=== PATIENT | female | born 1980 | race Caucasian/White ===

== ENCOUNTER → 2018-08-01 | Outpatient (CLI) | payer OTHER ==
[~2018-08-01] MED LIST: PRENATAL VITAMI1 TA5 PO
== END ==
LOC: MC.RAD 13:43
DX: N63.20 Unspecified lump in the left breast, unspecified quadrant (principal)
CPT/HCPCS: G0279

== ENCOUNTER 2018-08-05 09:28 | Emergency (ER) | payer OTHER ==
[~2018-08-05] VITALS: Ht 162.6 cm; Wt 60.1 kg
[2018-08-05 09:30] VITALS: TEMP 98.9
[2018-08-05] MEDS ORDERED: PROBIOTIC FORMU1 CAP PO (09:47)
[2018-08-05 10:04] LABS: BASO % 0.4 % (0.0-2.0); EOS % 0.1 % (0-4.0); GRAN # 5.5 (1.4-6.5); HEMATOCRIT 38.8 % (37.0-47.0); HEMOGLOBIN 13.5 g/dl (12.5-16.0); LYMPH # 1.2 (1.2-3.4); LYMPH % 16.1 % (20.0-51.0); MEAN CELL VOLUME 86 fl (80.0-100.0); MEAN CORPUSCULAR HEMOGLOBIN 30 pg (27.0-31.0); MEAN CORPUSCULAR HGB CONC 35 g/dl (33.0-37.0); MEAN PLATELET VOLUME 9.4 fl (7.4-10.4); MONO # 0.4 (0.1-0.6); MONO % 5.8 % (1.7-9.3); PLATELET COUNT 263 K/mm3 (130-400); RED BLOOD COUNT 4.52 M/mm3 (4.10-5.30); REDCELL DISTRIBUTION WIDTH-CV 11.8 % (11.5-14.5)
[2018-08-05 10:15] LABS: ALBUMIN 4.5 gm/dL (3.5-5.0); BILIRUBIN,TOTAL 0.6 mg/dL (0.0-1.0); C-REACTIVE PROTEIN 0.6 mg/dL (0.0-0.9); CALCIUM 9.7 mg/dL (8.4-10.2); CREATININE, serum 0.58 (0.52-1.25); POTASSIUM 3.9 mmol/L (3.4-5.0); TOTAL PROTEIN 7.8 gm/dL (6.4-8.2)
[2018-08-05 11:12] LABS: COLLECTION METHOD CLEAN CATCH
[2018-08-05 11:21] LABS: MUCOUS Present /lpf; PH 5 (5-8); SQUAMOUS EPITHELIAL 0-2 /hpf; URINE APPEARANCE Clear; URINE BACTERIA None Seen /hpf; URINE BILIRUBIN Negative (NEGATIVE); URINE BLOOD 2+ (NEGATIVE); URINE COLOR Yellow; URINE GLUCOSE Negative (NEGATIVE); URINE KETONE 2+ (NEGATIVE); URINE LEUKOCYTE ESTERASE Negative (NEGATIVE); URINE NITRATE Negative (NEGATIVE); URINE PROTEIN(semi-quant) Negative (NEGATIVE); URINE RBC 0-2 /hpf; URINE UROBILINOGEN Negative (NEGATIVE)
[2018-08-05] MEDS ORDERED: ZOFRAN ODT4 MG PO (11:58)
[2018-08-05 12:44] VITALS: BP 92/54; PULSE 71
== END 2018-08-05 12:44 | disposition home or self-care (01) ==
LOC: COL.ER 09:28
PROVIDERS: Physician Assistant
DX: R11.2 Nausea with vomiting, unspecified (principal); E86.0 Dehydration
CPT/HCPCS: J2405; J2765; J7030

== ENCOUNTER → 2018-08-07 | Outpatient (CLI) | payer OTHER ==
[~2018-08-07] MED LIST changes: +PROBIOTIC FORMU1 CAP PO; +ZOFRAN ODT4 MG PO
== END ==
LOC: MC.RAD 10:41
DX: N63.22 Unspecified lump in the left breast, upper inner quadrant (principal)

== ENCOUNTER → 2018-08-20 | Outpatient (CLI) | payer OTHER | LOC: COL.RAD 07:30 | DX: R10.11 Right upper quadrant pain (principal); Z68.23 Body mass index [BMI] 23.0-23.9, adult ==

== ENCOUNTER → 2018-09-06 | Outpatient (CLI) | payer OTHER | LOC: COL.RAD 07:03 | DX: R10.11 Right upper quadrant pain (principal) | CPT/HCPCS: A9537 ==

== ENCOUNTER → 2023-04-26 | Outpatient (CLI) | payer OTHER ==
[~2023-04-26] MED LIST changes: +LIPITOR20 MG PO; -PROBIOTIC FORMU1 CAP PO; +PROBIOTIC-MAJOR PO
== END ==
LOC: MC.RAD 13:49
DX: Z12.31 Encounter for screening mammogram for malignant neoplasm of breast (principal)